=== PATIENT | female | born 1965 | race Caucasian/White ===

== ENCOUNTER 2021-01-24 19:02 | Emergency (ER) | payer OTHER, SELFPAY ==
[2021-01-24 19:30] VITALS: BP 172/100; PULSE 87; RESP 20; TEMP 37; O2SAT 97; BMI 34.0
[2021-01-24 19:55] LABS: UTC Strep Screen (Rapid) Negative (Negative)
--- NOTE | 2021-01-24 19:57 | HMH.EDUTC ---
[facility] Disposition Clinical Impression: URI (upper respiratory infection) Qualifiers: URI type: unspecified URI Qualified Code(s): J06.9 - Acute upper respiratory infection, unspecified Disposition: Home, Self-Care Condition on Discharge: Good Instructions: Sore Throat, Azithromycin Additional Instructions: *Monitor Temp, Over the counter Motrin or Tylenol as directed/as needed Tylenol every 4 hours and Motrin every 6 hours (as long as your family doctor has told you that you can take it) for fever or pain. and straight to ER if unable to lower temp less than 101.0 after medication given *Warm salt water gargles may help to soothe the throat *Throat Lozenges *Warm fluids like tea with honey may help to soothe the throat *Sleep elevated *Humidifier/Vaporizer Your throat swab was sent for culture. Those results are typically sent to your primary care. Be sure to follow up in 2-3 days with your family doctor/primary care physician if no improvement so they can review those result and treat if necessary. If you don?t have a primary care doctor, I recommend you get one but in the mean time, you will have to return to a walk in clinic Follow up IMMEDIATELY for new or worsening symptoms or no Noticeable improvement over the next 48-72 hours. 911 for difficulty breathing or swallowing You were tested for today for COVID19 your test result should be back in the next 24-48 hours, You was given instructions to [facility] for your results if you do not have internet access you may call the [facility] You was given a handout with instructions for Self Quarantine and Self isolation for while you wait on test results and what to do if they are positive If you are positive the Health Dept will be contacting you also Make sure to take your Vitamins Vit. C Vit D and Zinc if you can take them Prescriptions: Azithromycin [Z-Willard 250mg Tab] 250 mg PO DIRECTED #6 tab Transmission Status: Pending to [facility]/pharmacy #[id number] Referrals: Ciro Betts MD [Primary Care Provider] - As needed Forms: Work/School Release Time of Disposition: 20:05 Medical Decision Making - Liam Inquiry Pt receiving controlled substance: No Liam was queried for this patient: No Vital Signs: 01/24/21 19:30 Temperature 98.6 F Temperature Source Oral Pulse Rate [Right Brachial] 87 Respiratory Rate 20 Blood Pressure [Right Arm] 172/100 H Blood Pressure Mean [Right Arm] 124 Blood Pressure Source [Right Arm] Automatic Cuff Blood Pressure Position [Right Arm] Sitting 02 Sat by Pulse Oximetry 97 Oxygen Delivery Method Room Air - Lab Data Lab results reviewed: Yes: I reviewed the patient's lab results. Lab Results 01/24/21 19:44: Strep Scn Rapid Clinic Negative Orders (Tests/Meds): ORDERS Category Date Time Status Strep Screen Confirmation Stat Micro 01/24/21 19:44 Received Medical Decision Narrative: Patient rapid strep throat negative however patient has pharyngeal erythema with small white patchy like areas with small blister noted like that commonly seen with strep throat [facility] HPI - General Stated complaint: sore throat, weakness, cough, headache covid + Time Seen by Provider: 01/24/21 19:57 Mode of Arrival: Ambulatory Source of Information: Patient Limitations: No Limitations Description of Symptoms (Recalled from Triage Doc. by RN): PATIENT TEST POSITIVE FOR COVID ON 01/16/21. C/O SORE THROAT HEENT Symptoms (Recalled from RN notes): Yes Resp Symptoms (Recalled from RN notes): No Skin Symptoms (Recalled from RN notes): No MS Symptoms (Recalled from RN notes): No Functional Status (Recalled from RN notes): WNL - History of Present Illness Provider Complaint: Patient states that was dx with COVID last week States that she has been having COVID symptoms along with sore throat on and off but has continued to get worse States that she was brushing her teeth today and she noticed her throat was raw and had blisters on it
[2021-01-24 20:08] VITALS: BP 170/93; PULSE 87; RESP 20; TEMP 37; O2SAT 97
== END 2021-01-24 20:17 | disposition home or self-care (01) ==
PROVIDERS: Emergency Provider Nurse Practitioner; PCP Family Medicine
DX: J06.9 Acute upper respiratory infection, unspecified (principal); U07.1 COVID-19; I10 Essential (primary) hypertension; M32.9 Systemic lupus erythematosus, unspecified
CPT/HCPCS: 87880; 99202; G0463

== ENCOUNTER 2021-04-11 13:34 | Emergency (ER) | payer OTHER, SELFPAY ==
[2021-04-11 15:24] VITALS: BP 142/94; PULSE 82; RESP 18; TEMP 36.6; O2SAT 98; BMI 35.4
--- NOTE | 2021-04-11 16:04 | HMH.EDUTC ---
[facility] Dis[place] Clinical Impression: Spasm of muscle of lower back Disposition: Home, Self-Care Condition on Discharge: Good Instructions: Low Back Pain, DI for Low Back Pain, DI for Muscle Spasm Additional Instructions: *Ibuprofen josé luis 6 hours with meal as needed for pain/inflammation *Remember you had a Toradol shot in the clinic today, which is similar to Motrin *Not additional anti-inflammatory like motrin, aleve, advil with the above amount of ibuprofen. You can still take Tylenol every 4 hours as needed if you need something else for pain *Ice 20 minutes every 2 hours for the first 48 hours after the initial injury followed by moist heat every 20 minutes 3-4 times a day to affected area *Muscle relaxer every 8 hours as needed for muscle spasms but remember, it WILL cause drowsiness You cannot take it and drive, operate machinery or care for small children. *Keep this area active, no movement leads to more stiffness, However take it easy and avoid heavy lifting pushing or pulling *Follow up with you family doctor if no improvement for further treatment Prescriptions: Cyclobenzaprine HCl [Flexeril 10mg tablet] 10 mg PO Q8HP PRN #15 tab PRN Reason: Muscle Spasm Transmission Status: Received by [facility][id number] Ibuprofen [Ibuprofen 800mg Tablet] 800 mg PO TIDP PRN #20 tab PRN Reason: Moderate Pain Transmission Status: Received by [facility]/pharmacy #[id number] Referrals: Ciro Betts MD [Primary Care Provider] - As needed Forms: Work/School Release Time of Disposition: 17:27 Medical Decision Making - Liam Inquiry Pt receiving controlled substance: No Liam was queried for this patient: No Vital Signs: 04/11/21 15:24 04/11/21 17:39 Temperature 97.8 F 97.8 F Temperature Source Temporal Artery Scan Pulse Rate 82 Pulse Rate [Right Brachial] 82 Respiratory Rate 18 18 Blood Pressure 142/94 H Blood Pressure [Right Arm] 142/94 H Blood Pressure Mean [Right Arm] 110 Blood Pressure Source [Right Arm] Automatic Cuff Blood Pressure Position [Right Arm] Sitting 02 Sat by Pulse Oximetry 98 Oxygen Delivery Method Room Air Orders (Tests/Meds): ED MEDICATIONS Discontinued Medications Generic Name Dose Route Start Last Admin Trade Name Freq PRN Reason Stop Dose Admin Ketorolac Tromethamine 60 mg 04/11/21 17:02 04/11/21 17:11 Ketorolac 60mg/2ml Vial IM 04/11/21 17:03 60 mg ONCE ONE Administration Methylprednisolone Sodium Succinate 125 mg 04/11/21 17:02 04/11/21 17:10 Methylprednisolone Sod Succ 125mg Vial IM 04/11/21 17:03 125 mg ONCE ONE Administration - Radiology Data #1 Image(s): L-Spine Image Reviewed: Yes I have reviewed radiologist's interpretation IMPRESSION: 1. No acute fracture or listhesis. 2. Severe degenerative disc disease with spondylosis L4-L5 and L5-S1. 3. Lumbar muscle spasm. 4. Additional nonemergency and chronic findings as above. [facility] HPI - General Stated complaint: muscle spasms in back Time Seen by Provider: 04/11/21 16:04 Mode of Arrival: Ambulatory Source of Information: Patient Description of Symptoms (Recalled from Triage Doc. by RN): MUSCLE SPASMS IN LOWER BACK HEENT Symptoms (Recalled from RN notes): No Resp Symptoms (Recalled from RN notes): No Skin Symptoms (Recalled from RN notes): No MS Symptoms (Recalled from RN notes): Yes Functional Status (Recalled from RN notes): WNL - History of Present Illness Provider Complaint: Patient states that she went skidiving about 3 weeks ago and ever since she has been having muscle spasms in her right lower back area that is worse at times with certain movements States that when it spasms up feels like it takes her breath denies falling denies known injury - Related Data Previous Rx's Medication Instructions Recorded lisinopril 20 mg tablet 20 mg PO DAILY #90 tab 03/18/20 Azithromycin [Z-Willard 250mg Tab] 250 mg PO DIRECTED #6 tab 01/24/21 Cyclobenzaprine HCl [Flexeril 1
--- NOTE | 2021-04-11 16:09 | XR_ITS ---
PROCEDURE INFORMATION: Exam: XR Lumbosacral Spine Exam date and time: 04/11/2021 4:09 PM Age: 55 years old Clinical indication: Low back pain; Additional info: Muscle spasm in back TECHNIQUE: Imaging protocol: XR of the lumbosacral spine. Views: 2 or 3 views. COMPARISON: No relevant prior studies available. FINDINGS: Bones/joints: There is a normal count of 5 [id number] lumbar type vertebrae. Mild roto dextroscoliosis of the lumbar spine. Severe degenerative disc narrowing at L4-L5 and L5-S1 levels, with mild to moderate spondylosis. Minimal disc narrowing and slight spondylosis at L3-L4. No acute fracture or significant listhesis. Straightening of lumbar lordosis suggests muscle spasm. Mild lower lumbar facet arthropathy. Soft tissues: No acute findings. Vascular calcifications in the abdomen and pelvis. Mild gaseous distention of some small bowel loops, no significantly dilated loops to suggest obstruction. Other findings: Mild bilateral sacroiliitis. IMPRESSION: 1. No acute fracture or listhesis. 2. Severe degenerative disc disease with spondylosis L4-L5 and L5-S1. 3. Lumbar muscle spasm. 4. Additional nonemergency and chronic findings as above.
[2021-04-11 17:39] VITALS: BP 142/94; PULSE 82; RESP 18; TEMP 36.6
== END 2021-04-11 17:42 | disposition home or self-care (01) ==
PROVIDERS: Emergency Provider Nurse Practitioner; PCP Family Medicine
DX: M62.830 Muscle spasm of back (principal); I10 Essential (primary) hypertension
CPT/HCPCS: 72100; 96372; 99202; G0463

== ENCOUNTER → 2023-03-29 23:48 | Outpatient (CLI) | payer OTHER, SELFPAY ==
[2023-03-29 20:52] LABS: Basophils % 0.6 % (0.1-2.0); Eosinophils # 0.2 K/mm3 (0.0-0.4); Eosinophils % 3.6 % (0.1-12.0); Hematocrit 41.4 % (37.0-47.0); Hemoglobin 14.4 g/dL (12.2-16.2); Mean Corpuscular HGB Conc 34.8 g/dL (31.8-35.4); Mean Corpuscular Hemoglobin 29.6 pg (27.0-31.2); Mean Corpuscular Volume 85.1 fl (81-99); Mean Platelet Volume 8.3 fl (7.4-10.4); Monocytes # 0.3 K/mm3 (0.1-1.0); Monocytes % 5.1 % (1.7-9.3); Neutrophils # 3.6 K/mm3 (1.8-7.8); Neutrophils % 58.7 % (37.0-80.0); Platelet Count 208 K/mm3 (142-424); Red Blood Count 4.86 M/mm3 (4.20-5.40); Red Cell Distribution Width 13.5 % (11.5-17.5); White Blood Count 6.2 K/mm3 (4.8-10.8)
[2023-03-29 21:31] LABS: Alanine Aminotransferase 59 U/L (12-78); Albumin Level 4.6 g/dl (3.5-5.0); Albumin/Globulin Ratio 1.4 (1.1-1.8); Alkaline Phosphatase 87 U/L (38-126); Anion Gap 14.2 mEq/L (5-15); Aspartate Amino Transferase 57 U/L (14-36); Bilirubin,Total 0.6 mg/dl (0.2-1.3); Blood Urea Nitrogen 13 mg/dl (7-17); Calcium 9.6 mg/dl (8.4-10.2); Carbon Dioxide 28 mmol/L (22.0-30.0); Chloride 102 mmol/L (98-107); Chol/HDL Ratio 3.6 (1-3.5); Cholesterol 214 mg/dl (140-200); Estimated Glomerular Filt Rate 104 ml/min (>60); GFR (African American) 126 ML/MIN (>60); Globulin 3.2 g/dL (1.3-3.2); Glucose 113 mg/dl (74-100); HDL Cholesterol 59 mg/dl (40-60); Potassium 4.2 mmoL/L (3.5-5.1); Sodium 140 mmol/L (136-145); Total Protein,Serum 7.8 g/dl (6.3-8.2); Triglycerides 159 mg/dl (30-150); VLDL Cholesterol 32 mg/dL (0-40)
[2023-03-29 21:42] LABS: Direct LDL Cholesterol 122.17 mg/dL (100-129)
[2023-03-29 21:50] LABS: 25-OH Vitamin D, Total 28.7 ng/mL (30-100)
[2023-03-29 22:03] LABS: Thyroid Stimulating Hormone 1.26 uIU/mL (0.465-4.68)
[2023-03-29 22:11] LABS: Hemoglobin A1C 7.3 % (4.0-6.0)
[2023-03-29 22:39] LABS: Vitamin B12 785 pg/mL (239-931)
[2023-03-29 22:47] LABS: Folate 5.45 ng/mL
== END ==
LOC: LAB.DROPOF 23:48
PROVIDERS: PCP Family Medicine; Visit Provider Internal Medicine
DX: I10 Essential (primary) hypertension (principal); M32.9 Systemic lupus erythematosus, unspecified; R63.5 Abnormal weight gain; E55.9 Vitamin D deficiency, unspecified; R73.09 Other abnormal glucose; E66.9 Obesity, unspecified; Z68.38 Body mass index [BMI] 38.0-38.9, adult; Z79.899 Other long term (current) drug therapy
CPT/HCPCS: 80053; 80061; 82043; 82306; 82607; 82746; 83036; 84443; 85025

== ENCOUNTER 2023-05-24 07:35 | Outpatient (CLI) | payer OTHER, SELFPAY ==
--- NOTE | 2023-05-24 07:52 | MR_ITS ---
FINAL REPORT CLINICAL HISTORY: MENINGIOMA IN 2018 REMOVED. PART OF IT WAS LEFT IN THERE DUE TO WRAPPING AROUND BLOOD VESSELS. PATIENT STATES NO NEW SYMPTOMS. JUST A FOLLOW UP. COMPARISON: None available FINDINGS: Multiplanar MR imaging of the brain was performed without and with contrast. There are postoperative changes in the right occipital region of a prior craniotomy. By history, the patient has had partial excision of a meningioma. There is a homogeneously contrast enhancing mass in the posterior falcine region measuring 24 x 17 x 5 mm in size. This mass abuts the superior sagittal sinus, and likely involves the superior sagittal sinus. Mild encephalomalacia is present in the right occipital lobe. No abnormal extra-axial fluid collection is seen. The ventricular size is within normal limits. There is no evidence of shift of the midline structures. The posterior fossa and brainstem have an unremarkable appearance. No area of abnormal restricted diffusion is identified. Normal major vessel vascular flow voids are noted. IMPRESSION: Homogeneously contrast-enhancing mass in the posterior falcine region, paracentral and to the right, as described. This is compatible with the patient's clinical history of a prior right occipital craniotomy for partial removal of a meningioma. The residual mass measures 24 x 17 x 15 mm in size. Mild encephalomalacia is present in the adjacent right occipital lobe. Reviewed, Interpreted and Dictated by Patricio Ball III, MD Transcribed by Gayathri Alvarez Authenticated and . [facility]
--- NOTE | 2023-05-24 07:52 | MR_ITS ---
FINAL REPORT CLINICAL HISTORY: right posterior knee pain. worse with walking. COMPARISON: None FINDINGS: Multiplanar MR imaging of the right knee was performed without contrast. There is a focal tear of the body of the lateral meniscus. The medial meniscus is intact. The anterior and posterior cruciate ligaments are intact. The medial collateral ligament and lateral ligamentous complex are intact. There is a focus of patellar tendinitis present. There is no evidence of fracture. There is mild patellar chondromalacia. A small joint effusion is seen. The musculature is intact. No soft tissue mass or cyst is identified. IMPRESSION: Focal tear body of the lateral meniscus. Small focus of patellar tendinitis. Mild patellar chondromalacia and a small joint effusion. Reviewed, Interpreted and Dictated by Patricio Ball III, MD Transcribed by Gayathri Alvarez Authenticated and [facility]
[2023-05-24 08:11] LABS: Blood Urea Nitrogen 16 mg/dl (7-17); Estimated Glomerular Filt Rate 104 ml/min (>60); GFR (African American) 126 ML/MIN (>60)
[2023-05-24] MEDS: GADOTERIDOL INJ 17ML SYRINGE 19 ML IV (09:28)
== END 2023-05-24 23:59 ==
LOC: RAD 07:38
PROVIDERS: PCP Family Medicine; Visit Provider Family Medicine
DX: D32.9 Benign neoplasm of meninges, unspecified (principal); M25.561 Pain in right knee
CPT/HCPCS: 36415; 70553; 73721; 82565; 84520; A9576

== ENCOUNTER 2023-07-10 09:36 | Day surgery (SDC) | payer OTHER, SELFPAY ==
[2023-07-09 09:21] VITALS: BMI 35.9
[2023-07-10] MEDS: LACTATED RINGERS 1000ML 1,000 ML 25 ML IV (09:49)
[2023-07-10 09:52] VITALS: BP 159/94; PULSE 82; RESP 18; TEMP 36.1; O2SAT 97
--- NOTE | 2023-07-10 09:54 | HMH.SCOPE ---
Procedure: Date: 07/10/23 Patient Date of :: 1965 Procedure Performed:: Colonoscopy with polypectomy Indications:: Screening Performing Provider:: Mata Ndiaye MD Referring Provider:: . Sedation:: Monitored anesthesia care Procedure:: After informed consent was obtained the patient was taken to the endoscopy suite. Sedation ensued after the patient was transferred to the left lateral decubitus position. Pulse, blood pressure, and oxygen saturation were monitored throughout the procedure. Digital rectal exam revealed no significant abnormality. The colonoscope was placed in position. The entire colon was evaluated. The colonoscope was carefully removed and the patient was transferred to recovery in stable condition. Please see findings and specimens below for detail. Findings:: Bowel preparation moderate Scattered diverticulosis Profound sigmoid tortuosity Moderate spasticity Multiple complex polyps Specimens:: Lobulated periappendiceal polyp (hot snare) 8 mm lobulated complex sessile cecal polyp (hot snare) Large lobulated complex pedunculated polyp at 20 cm (hot snare) Pedunculated polyp at 18 cm Recommendations:: Timing of repeat colonoscopy is pending pathology but will likely be around 1-2 years secondary to size/nature of polyps, moderate bowel preparation, and sigmoid tortuosity. Complications:: No immediate Estimated blood obtained (mL): 1 Colonoscopy Component Colonoscopy Component Was a colonoscopy performed during today's procedure?: Yes Recommended follow up colonoscopy of at least 10 years?: No If no, follow up colonoscopy recommended in ___ years?: (See above) Reason for not recommending >/= 10 yr follow-up interval?: (See above)
[2023-07-10 10:00] LABS: POC Glucose,Bedside 102 (70-110)
--- NOTE | 2023-07-10 10:05 | EXP.ANES.CKL ---
[facility] Disclaimer: The information contained in this section may have been updated after the patient was seen, as this information can be updated by other users. Medical History History of diabetes mellitus History of lupus History of meningioma Hypertension Surgical History History of tubal ligation Family History Other Cancer Diabetes Heart attack Hypertension Kidney disease Social History Smoking Status: Former smoker alcohol intake: former substance use type: denies use current occupational status: employed Travel in the last 8 weeks: None housing: house [facility] Anesthesia Checklist Patient Identification Patient Identification: Arm Band Structural Data Admitted From: Home Planned Operative Procedure/s: Colonoscopy Consent for Planned Operative Procedure(s) Verified: Yes Verified Documents: Surgical Consent and History and Physical NPO Status Verified Time NPO: 00:00 Additional verifications Anesthesia Reactions: No Airway Assessment Mallampati Score:: Class II C-Spine Mobility Assessed: Yes TMJ Mobility Assessed: Yes Dentition: Dentures-good fit (removed) Neurological Assessment Level of Consciousness: Awake, Alert and Appropriate Anesthesia Plan Anesthesia Risk discussed: Yes Anesthesia Plan: Verified ASA Class: II Anesthesia Type: MAC
[2023-07-10 10:10] VITALS: O2SAT 95
[2023-07-10 10:51] VITALS: BP 98/60; PULSE 73; RESP 18; TEMP 36.3; O2SAT 92
[2023-07-10 11:01] VITALS: BP 113/68; PULSE 74; RESP 17; O2SAT 97
[2023-07-10 11:11] VITALS: BP 139/75; PULSE 75; RESP 16; O2SAT 97
[2023-07-10 11:18] VITALS: BP 125/70; PULSE 74; RESP 16; O2SAT 97
== END 2023-07-10 11:19 | disposition home or self-care (01) ==
PROVIDERS: PCP Family Medicine; Visit Provider Surgery
PROC: 0DJD8ZZ Inspection of Lower Intestinal Tract, Via Natural or Artificial Opening Endoscopic (ICD-10-PCS; CPT 45385; principal; 2023-07-10 10:30)
DX: Z12.11 Encounter for screening for malignant neoplasm of colon (principal); K57.30 Diverticulosis of large intestine without perforation or abscess without bleeding; D12.0 Benign neoplasm of cecum; D12.5 Benign neoplasm of sigmoid colon; E11.9 Type 2 diabetes mellitus without complications
CPT/HCPCS: 45385; 82962

== ENCOUNTER 2024-04-07 09:35 | Outpatient (CLI) | payer OTHER, SELFPAY ==
[2024-04-07 18:51] LABS: Basophils # 0.1 K/mm3 (0-0.2); Basophils % 1.2 % (0.1-2.0); Eosinophils # 0.2 K/mm3 (0.0-0.4); Eosinophils % 3.7 % (0.1-12.0); Hemoglobin 14.2 g/dL (12.2-16.2); Lymphocytes # 1.8 K/mm3 (0.7-4.5); Lymphocytes % 32.8 % (10-50); Mean Corpuscular HGB Conc 33.1 g/dL (31.8-35.4); Mean Corpuscular Hemoglobin 29.2 pg (27.0-31.2); Mean Platelet Volume 8.1 fl (7.4-10.4); Monocytes # 0.3 K/mm3 (0.1-1.0); Monocytes % 5.4 % (1.7-9.3); Neutrophils # 3.2 K/mm3 (1.8-7.8); Platelet Count 219 K/mm3 (142-424); Red Blood Count 4.88 M/mm3 (4.20-5.40); Red Cell Distribution Width 13.4 % (11.5-17.5); White Blood Count 5.6 K/mm3 (4.8-10.8)
[2024-04-07 19:05] LABS: Albumin Level 4.5 g/dl (3.5-5.0); Chloride 104 mmol/L (98-107)
[2024-04-07 19:06] LABS: Potassium 4.3 mmoL/L (3.5-5.1); Sodium 139 mmol/L (136-145)
[2024-04-07 19:08] LABS: Alanine Aminotransferase 39 U/L (12-78); Anion Gap 14.3 mEq/L (5-15); Aspartate Amino Transferase 36 U/L (14-36); Blood Urea Nitrogen 14 mg/dl (7-17); Carbon Dioxide 25 mmol/L (22.0-30.0); Estimated Glomerular Filt Rate 103 ml/min (>60); GFR (African American) 125 ML/MIN (>60)
[2024-04-07 19:09] LABS: Albumin/Globulin Ratio 1.6 (1.1-1.8); Alkaline Phosphatase 71 U/L (38-126); Bilirubin,Total 0.7 mg/dl (0.2-1.3); Calcium 9.5 mg/dl (8.4-10.2); Chol/HDL Ratio 3.7 (1-3.5); Cholesterol 223 mg/dl (140-200); Globulin 2.8 g/dL (1.3-3.2); Glucose 133 mg/dl (74-100); HDL Cholesterol 60 mg/dl (40-60); Total Protein,Serum 7.3 g/dl (6.3-8.2); Triglycerides 112 mg/dl (30-150); VLDL Cholesterol 22 mg/dL (0-40)
[2024-04-07 19:22] LABS: Direct LDL Cholesterol 142.87 mg/dL (100-129)
[2024-04-07 19:33] LABS: HIV (1&2) Antibody Rapid NONREACTIVE (NONREACTIVE)
[2024-04-07 21:23] LABS: Hemoglobin A1C 6.1 % (4.0-6.0)
[2024-04-09 07:14] LABS: HCV Ab Non Reactive (Non Reactive)
== END 2024-04-07 23:59 | disposition home or self-care (01) ==
LOC: LAB.DROPOF 04-08 09:15
PROVIDERS: PCP Family Medicine; Visit Provider Family Medicine
DX: I10 Essential (primary) hypertension (principal); Z11.59 Encounter for screening for other viral diseases; Z11.4 Encounter for screening for human immunodeficiency virus [HIV]; E11.8 Type 2 diabetes mellitus with unspecified complications; Z00.00 Encounter for general adult medical examination without abnormal findings; Z79.85 Long-term (current) use of injectable non-insulin antidiabetic drugs; Z79.84 Long term (current) use of oral hypoglycemic drugs
CPT/HCPCS: 80053; 80061; 83036; 85025; 86803; 87389

== ENCOUNTER 2024-04-29 10:08 | Outpatient (CLI) | payer OTHER, SELFPAY ==
--- NOTE | 2024-04-29 10:11 | MM_ITS ---
PROCEDURE INFORMATION: Exam: MG Bilateral Screening 3D Mammography Exam date and time: 04/29/2024 10:05 AM Age: 58 years old Clinical indication: Screening examination. TECHNIQUE: Imaging protocol: Bilateral Screening tomosynthesis and 2D mammography including computer-aided detection (CAD) when performed. COMPARISON: No relevant prior studies available. FINDINGS: MAMMOGRAPHY: Breast composition: There are scattered areas of fibroglandular density. Mass: Round circumscribed 0.6 cm low-density mass in the left breast lower outer quadrant, middle depth. Architectural distortion: None. Calcifications: No suspicious calcifications. Asymmetric density: None. Skin thickening: None. Axillary adenopathy: None. IMPRESSION: Patient to be recalled for spot compression views of the left breast in the CC and MLO projections, a full 90 degree lateral view, and left breast ultrasound for further evaluation of a left breast mass. ASSESSMENT: BI-RADS Category 0: Incomplete- Need Additional Imaging Evaluation.
== END 2024-04-29 23:59 | disposition home or self-care (01) ==
LOC: RAD 10:09
PROVIDERS: PCP Family Medicine; Visit Provider Family Medicine
DX: Z12.31 Encounter for screening mammogram for malignant neoplasm of breast (principal)
CPT/HCPCS: 77063; 77067

== ENCOUNTER 2024-06-09 08:28 | Outpatient (CLI) | payer OTHER, SELFPAY ==
--- NOTE | 2024-06-09 08:33 | US_ITS ---
PROCEDURE INFORMATION: Exam: US Left Breast, Complete MG Left Diagnostic Breast Tomosynthesis Exam date and time: 06/09/2024 9:02 AM Age: 58 years old Clinical indication: Callback from screening for left breast mass TECHNIQUE: Imaging protocol: Complete ultrasound of all four quadrants of the left breast and the retroareolar regions, including ultrasound of the axilla when performed. Left Diagnostic tomosynthesis and 2D mammography including computer-aided detection (CAD) when performed. Unilateral or bilateral exam. COMPARISON: MG MM DIG MAMM DX UNILAT LT CAD 06/09/2024 8:24 AM FINDINGS: MAMMOGRAPHY: Breast composition: There are scattered areas of fibroglandular density. Breast mammogram findings: Persistent low-density circumscribed 0.6 cm mass at in the lower outer quadrant middle depth. Elsewhere, there are no suspicious masses or calcifications in the partially visualized breast. No abnormal lymph nodes in the partially visualized axilla. ULTRASOUND: Breast ultrasound findings: Left breast ultrasound: At 5 o'clock 7 cm from the nipple there is a parallel circumscribed hypoechoic oval mass or complicated cyst measuring 0.8 x 0.7 x 0.4 cm corresponding to the mammographic finding in question. There are no abnormal lymph nodes in the axilla IMPRESSION: Left breast mass is probably benign. Recommend six-month follow-up left breast ultrasound to ensure stability ASSESSMENT: BI-RADS Category 3: Probably benign.
== END 2024-06-09 23:59 | disposition home or self-care (01) ==
LOC: RAD 08:29
PROVIDERS: PCP Family Medicine; Visit Provider Family Medicine
DX: R92.8 Other abnormal and inconclusive findings on diagnostic imaging of breast (principal); N63.23 Unspecified lump in the left breast, lower outer quadrant
CPT/HCPCS: 76641; 77061; 77065; G0279

== ENCOUNTER 2024-07-21 16:04 | Outpatient (CLI) | payer OTHER, SELFPAY ==
[2024-07-21 23:01] LABS: Albumin Level 4.8 g/dl (3.5-5.0); Chloride 104 mmol/L (98-107); Potassium 4.4 mmoL/L (3.5-5.1); Sodium 139 mmol/L (136-145)
[2024-07-21 23:03] LABS: Alanine Aminotransferase 36 U/L (12-78); Anion Gap 10.4 mEq/L (5-15); Aspartate Amino Transferase 35 U/L (14-36); Blood Urea Nitrogen 16 mg/dl (7-17); Carbon Dioxide 29 mmol/L (22.0-30.0); Estimated Glomerular Filt Rate 103 ml/min (>60); GFR (African American) 125 ML/MIN (>60)
[2024-07-21 23:04] LABS: Albumin/Globulin Ratio 1.8 (1.1-1.8); Alkaline Phosphatase 67 U/L (38-126); Bilirubin,Total 0.5 mg/dl (0.2-1.3); Calcium 9.7 mg/dl (8.4-10.2); Chol/HDL Ratio 3.6 (1-3.5); Cholesterol 226 mg/dl (140-200); Globulin 2.6 g/dL (1.3-3.2); Glucose 84 mg/dl (74-100); HDL Cholesterol 62 mg/dl (40-60); Total Protein,Serum 7.4 g/dl (6.3-8.2); Triglycerides 194 mg/dl (30-150); VLDL Cholesterol 39 mg/dL (0-40)
[2024-07-21 23:16] LABS: Direct LDL Cholesterol 127.72 mg/dL (100-129)
== END 2024-07-21 23:59 | disposition home or self-care (01) ==
LOC: LAB.DROPOF 07-24 09:29
PROVIDERS: PCP Family Medicine; Visit Provider Family Medicine
DX: E78.5 Hyperlipidemia, unspecified (principal); I10 Essential (primary) hypertension; E11.9 Type 2 diabetes mellitus without complications
CPT/HCPCS: 80053; 80061

== ENCOUNTER 2024-08-04 10:08 | Outpatient (CLI) | payer OTHER, SELFPAY ==
--- NOTE | 2024-08-04 10:15 | CA_ITS ---
APPROVED REPORT EXAM: Comprehensive 2D, Doppler, and color-flow Echocardiogram Media Promoter: Ema Andino RT(R) Ht: 5 ft 3 in Wt: 206lbs BSA: 1.96 BP: 166/88 mmHg Indications: CP, smoker, HTN, edema. 2D Dimensions LVEF (Green's) 78.70 % F: 54 - 74 LV Volume 59.10 mL F: 46 - 106 LV Volume Index 30.2 mL/m2 F: 29 - 61 LA Volume 17.40 mL LA Volume Index 8.88 mL/m2 (M/F) 16-34 EF AP4 81.00 % EF AP2 77.9 % EF BP 78.7 % GL Strain -25.3 % M-Mode Dimensions RVDd 2.82 cm (0.9-2.6) LA Diam 3.07 cm (1.9-4.0) LVDd 4.63 cm (3.5-5.7) LVDs 3.42 cm (3.5-5.7) IVSd 0.72 cm (0.6-1.1) PWd 0.97 cm (0.6-1.1) EF (Teich) 51.30% FS 26.10% EDV (Teich) 98.80 mL ESV (Teich) 48.10 mL LV Diastology E Decel Time 180 (160-240 msec) E/A Ratio 0.7 Mitral Valve MV E Max Bradley. 61.0 (40-130 cm/s) MV A Velocity 85.0 (40-130 cm/s) E/A Ratio 0.72 MV PHT 53.0 ms Left Ventricle The left ventricle is normal size. The left ventricular systolic function is normal. The left ventricular ejection fraction is within the normal range. There is increased LV wall thickness. There is normal LV segmental wall motion. The left ventricular diastolic function is normal. LVEF is 55%. Right Ventricle The right ventricle is normal size. The right ventricular systolic function is normal. Atria The left atrium size is normal. The right atrium size is normal. There is no Doppler evidence of interatrial shunt. Aortic Valve The aortic valve opens well. There is no aortic valvular stenosis. No aortic regurgitation is present. Mitral Valve The mitral valve is normal in structure. No evidence of mitral valve stenosis. Trace mitral regurgitation. Tricuspid Valve Tricuspid valve is grossly normal in structure and function. Trace tricuspid regurgitation. There is insufficient TR jet to estimate RVSP. Pulmonic Valve The pulmonary valve is normal in structure. Trace pulmonic regurgitation. Great Vessels The aortic root is normal in size. IVC is normal in size and collapses >50% with inspiration. Pericardium There is no pericardial effusion. Other Information Study Quality: Technically Difficult Conclusion Technically difficult study due to poor acoustic windows. Normal biventricular systolic function. No significant valvular stenosis or regurgitation. Electronically signed by : Hien Yancey MD 08/10/2024 21:46:55
== END 2024-08-04 23:59 | disposition home or self-care (01) ==
PROVIDERS: PCP Family Medicine; Visit Provider Family Medicine
DX: R07.9 Chest pain, unspecified (principal); R60.0 Localized edema
CPT/HCPCS: 93306

== ENCOUNTER 2024-08-05 06:46 | Outpatient (CLI) | payer OTHER, SELFPAY ==
--- NOTE | 2024-08-05 | CA_ITS ---
APPROVED REPORT Exam: Pharmacologic Technologist: Saloni Demarco Stress Test Details Test: Lexiscan Reason for pharmacologic stress test: physical limitation. HR Resting HR: 57 bpm Max Heart Rate (APMHR): 163.039899 bpm Max HR Achieved: 90 bpm Target HR (85% APMHR): 138.141214 bpm % of APMHR: 55.21 Recovery HR: 74 bpm BP Resting BP: 116.0/56.0 mmHg Max BP: 111.0/63.0 mmHg Recovery BP: 111.0/59.0 mmHg ECG Resting ECG: SB Stress ECG Conclusion Symptoms: Dyspnea, chest pressure. Arrhythmias/Ectopy: ----- ST-T Changes: Less than 1mm ST depression. Conclusion: EKG unremarkable due to Lexiscan infusion. Electronically signed by : Hien Yancey MD 08/05/2024 12:13:23
--- NOTE | 2024-08-05 06:54 | NM_ITS ---
APPROVED REPORT Exam: Nuclear Stress Test Indication: Chest pain, Fatigue, HTN, DM, High cholesterol, Tobacco use, Family history Patient Location: Outpatient Stress Tech: Saloni Howell DC Tech:Nevaeh Meek, ARRT, RT (R)(N) Ht: 5 ft 3 in Wt: 205 lbs Bra Size: 40DD HR: 65 bpm BP: 128/76 mmHg BSA: 1.95 m2 TID: 1.29 BMI: 36.3 History: Chest pain, Fatigue, HTN, DM, High cholesterol, Tobacco use, Family history Procedure: Patient received 0.4 mg of intravenous Lexiscan, resting heart rate 65 bpm, resting blood pressure 128/76 mmHg, with Lexiscan maximum heart rate achieved was 98 bpm which is % of the maximum predicted heart rate and blood pressure was 132/72 mmHg. With Lexiscan, patient denied any complaint of chest pain. Cardiac Stress and Resting SPECT Images: Cardiac Stress and Resting SPECT images were obtained using technetium 99m Myoview 30.7 mCi stress and 10.14 mCi at rest. Resting and stress imaging in supine and prone positions demonstrate no evidence of fixed or reversible perfusion defects. There is increase in transient ischemic dilatation ratio (TID 1.29), suggestive of possible multivessel disease or balanced ischemia. Gated imaging demonstrates normal global and regional LV systolic function. LVEF is calculated at 62%. Conclusion: No evidence of fixed or reversible perfusion defects. There is increase in transient ischemic dilatation ratio (TID 1.29), suggestive of possible multivessel disease or balanced ischemia. Gated imaging demonstrates normal global and regional LV systolic function. LVEF is calculated at 62%. Electronically signed by : Hien Yancey MD 08/05/2024 12:11:51
[2024-08-05] MEDS: SODIUM CHLORIDE 0.9% 10ML SYR (RAD ONLY) 10 ML IV ×2 (08:46)
[2024-08-05] MEDS: ISOTOPE MYOVIEW (PER STUDY) 1 DOSE IV (08:46)
[2024-08-05] MEDS: REGADENOSON 0.4MG/5ML SYRINGE 0.4 MG IV (08:46)
== END 2024-08-05 23:59 | disposition home or self-care (01) ==
PROVIDERS: PCP Family Medicine; Visit Provider Family Medicine
DX: R07.9 Chest pain, unspecified (principal); R60.0 Localized edema
CPT/HCPCS: 78452; 93017; 93018; A9502; J2785

== ENCOUNTER 2024-08-22 09:03 | Outpatient (CLI) | payer OTHER, SELFPAY ==
[2024-08-22 09:27] VITALS: BP 102/51; PULSE 56; RESP 17; O2SAT 97; BMI 35.4
[2024-08-22 09:47] LABS: Chloride 100 mmol/L (98-107); Sodium 138 mmol/L (136-145)
[2024-08-22 09:48] LABS: Potassium 4.4 mmoL/L (3.5-5.1)
[2024-08-22 09:50] LABS: Blood Urea Nitrogen 22 mg/dl (7-17); Creatinine Clearance Estimated 111 mL/min (50-200); Estimated Glomerular Filt Rate 74 ml/min (>60); GFR (African American) 89 ML/MIN (>60)
[2024-08-22 09:51] LABS: Anion Gap 11.4 mEq/L (5-15); Calcium 9.8 mg/dl (8.4-10.2); Carbon Dioxide 31 mmol/L (22.0-30.0); Glucose 134 mg/dl (74-100)
[2024-08-22 10:00] VITALS: BP 117/75; PULSE 59; RESP 17; O2SAT 100
--- NOTE | 2024-08-22 10:00 | CT_ITS ---
APPROVED REPORT Broadband Technician: CLINICAL INDICATION Chest Pain TECHNIQUE Image Acquisition: A 128 slice MDCT scanner ([employer] View) was used for data acquisition. A noncontrast coronary calcium scan was performed. A CT attenuation threshold of 130 Hounsfield units (HU) was used for the detection of calcium in contiguous voxels of 1 sq mm in area to be counted as individual lesions. Bolus tracking in the ascending aorta with a threshold of 180 HU was performed. Immediately afterwards, ECG synchronized cardiac CT was then performed from the cardiac base to apex using retrospective gating with ECG tube current modulation. A total of 85 mL of Isovue 370 mg/mL contrast medium was administered at 5 mL/sec followed by a saline flush using a biphasic injection protocol. A tube voltage of 120 KVp was used. The patient received the following medications prior to the cardiac CT. 0.8 mg of sublingual nitroglycerin The average heart rate at the time of acquisition was 57 bpm and regular. Image Reconstruction Transaxial images were reconstructed at 0.67 mm slide thickness. Data was reviewed interactively on an advanced workstation capable of 2 and 3-dimensional displays in all conventional reconstruction formats, including multiplanar reformations, maximum intensity projections, curved multiplanar reformations, and volume rendered reconstructions. When applicable, selected routine images describing the relevant coronary anatomy and pathology were saved and sent to PACS. Complications None Technical Quality Overall image quality was good. Coronary artery opacification was adequate. Total DLP (Dose-Length Product) is 1380.7 mGy-cm. The reported value represents the total of one or more individual components during the CT acquisition of this date and at this time, and as such, the same value may appear in more than one CT report depending on the interpreting/reporting physicians. COMPARISON None FINDINGS CT Coronary Calcium Scoring LMA (Left Main Artery) = 5 LAD (Left Anterior Descending) = 26 LCX (Left Coronary Circumflex) = RCA (Right Coronary Artery) = 32 Total Calcium Score = 63 using the AJ-130 method. The observed calcium score of 63 is at 69th percentile for subjects of the same age, sex, and race/ethnicity. The interpretation of the calcium heart score is based on the following continuum*: 0 = no calcified plaque detected (risk of coronary artery disease is very low ??? less than 5%) 1-10 = calcium detected in extremely minimal levels (risk of coronary diseases is still low ??? less than 10%) 11-100 = mild levels of plaque detected with certainty (mild or minimal narrowing of heart arteries is likely) 101-400 = definite,at least moderate levels of plaque detected (relatively high risk of a heart attack within 3-5 years) >401-999 = extensive levels of plaque detected (high risk of heart attack, high levels of vascular disease are present, high likelihood of at least one significant coronary narrowing) *The calcium heart score quantifies the burden of coronary calcification/plaque in the coronary arteries. The calcium heart score is not able to evaluate the presence or burden of non-calcified (i.e. soft) plaque. There is no identifiable calcification in the aortic valve, mitral annulus or mitral valve, pericardium, or myocardium. Coronary CT Angiography The coronary arterial system is right dominant. Quantitative Stenosis Grading: Left Main (LM): The left main originates normally from the left sinus of Valsalva. The LM bifurcates into the left anterior descending artery and left circumflex artery. There is a calcified plaque in the proximal LM segment with no evidence of luminal stenosis. Left Anterior Descending (LAD) and Diagonal Branches: The LAD gives off 2 diagonal branch(es). There is mixed calcified/noncalcified plaque in the proximal and mid LAD segment, with presence of a noncalcified plaque up to 25-50% luminal stenosis in the mid LAD. There is no evidence of LAD-myocardial bridge. Left Circumflex (LCX) and Obtuse Marginals (OM): The LCX gives off 2 Obtuse Marginal (OM) branch(es). There is mixed calcified/noncalcified plaque in the proximal LCx, with no evidence of luminal stenosis. Right Coronary Artery (RCA): The RCA originates normally from the right sinus of Valsalva. The RCA gives off a posterior descending artery (PDA) and posterolateral (PL) branches. There is mixed calcified/noncalcified plaque in the proximal RCA, with no evidence of luminal stenosis. Non-Coronary Cardiac Findings: Analysis of the left ventricular (LV) structure and function was performed after 3-D reconstruction of the LV from axial images, with user-corrected automatic contouring for assessment of LV volumes and user-defined reconstruction from oblique planes for measurement of 3-D cardiac structure and function. -The left ventricle systolic function is normal. -There is no left atrial appendage filling defect. Two right pulmonary veins and two left pulmonary veins drain normally into the left atrium. -No pericardial thickening or calcification. -Central and branch pulmonary arteries in the [id number] are unremarkable. -Thoracic aorta within the visualized thoracic aortic-branches in the [id number] is unremarkable. Extracardiac Structures No significant extra-cardiac findings. Note, however, that this study is focused on the cardiac findings. IMPRESSION - Presence of coronary calcification with an Agatston score = 63 using the AJ-130 method. -The observed calcium score of 63 is at 69th percentile for subjects of the same age, sex, and race/ethnicity. - Mild, nonobstructive atherosclerotic coronary disease (notably in the mid-LAD segment), with no evidence of significant flow-limiting atherosclerosis of the coronary arteries. -CAD-RADS 2. Management recommendations per ACC/AHA guidelines*, as clinically appropriate. *Recommendations: CAD RADS 0: Reassurance. Consider non-atherosclerotic causes of chest pain. CAD RADS 1: Consider non-atherosclerotic causes of chest pain. Consider preventive therapy and risk factor modification. CAD RADS 2: Consider non-atherosclerotic causes of chest pain. Consider preventive therapy and risk factor modification, particularly for patients with nonobstructive plaque in multiple segments. CAD RADS 3: Consider further functional testing. Consider symptom-guided anti-ischemic and preventive pharmacotherapy as well as risk factor modification per published guideline statements. CAD RADS 4A: Consider further functional testing or invasive coronary angiography with revascularization per published guideline statements. Consider symptom-guided anti-ischemic and preventive pharmacotherapy as well as risk factor modification per published guideline statements. CAD RADS 4B: Invasive coronary angiography recommended with revascularization per published guideline statements. Consider symptom-guided anti-ischemic and preventive pharmacotherapy as well as risk factor modification per published guideline statements. CAD RADS 5: Consider invasive angiography and/or viability assessment with revascularization per published guideline statements. Consider symptom-guided anti-ischemic and preventive pharmacotherapy as well as risk factor modification per published guideline statements. CRITICAL RESULT None COMMUNICATION Per this written report The coronary and cardiac findings of this CCTA were reviewed, reported, and signed by Tr Yancey MD (Forge Operator Helper) Conclusion Electronically signed by : Hien Yancey MD 08/26/2024 12:43:53
[2024-08-22] MEDS: 0.9 % SODIUM CHLORIDE 50 ML VIAL IV ×2 (10:07→10:15)
[2024-08-22] MEDS: SODIUM CHLORIDE 0.9% 10ML SYR (RAD ONLY) 10 ML IV ×2 (10:07→10:15)
[2024-08-22] MEDS: IOPAMIDOL-370 (76%);100ML BOTTLE 85 ML IV ×2 (10:08→10:15)
== END 2024-08-22 23:59 | disposition home or self-care (01) ==
PROVIDERS: PCP Family Medicine; Visit Provider Nurse Practitioner
DX: R93.1 Abnormal findings on diagnostic imaging of heart and coronary circulation (principal); I10 Essential (primary) hypertension; Z82.49 Family history of ischemic heart disease and other diseases of the circulatory system
CPT/HCPCS: 75574; 80048; Q9967